=== PATIENT | female | born 1985 | race Caucasian/White ===

== ENCOUNTER 2021-01-05 12:03 | Inpatient (IN) ==
[~2021-01-05 12:03] MED LIST: *HR* FentaNYL (PF) 100 MCG/2 ML VIAL IVP PRN; *HR* Nalbuphine 10 MG/ML AMPUL IV PRN; Acetaminophen 325 MG TABLET PO ONE; Famotidine 20 MG/2 ML VIAL IVP PRN; Lidocaine 1% 20 ML MDV INFILT PRN; Metoclopramide 10 MG/2 ML VIAL IVP PRN; Naloxone 0.4 MG/ML INJ IVP PRN; Ondansetron 4 MG/2 ML VIAL IVP PRN
[2021-01-05 13:26] LABS: Basophils # 0.1 K/mcL (0.0-0.2); Basophils % 0.5 %; Eosinophils # 0.2 K/mcL (0.0-0.6); Eosinophils % 1.9 %; Hematocrit 36.5 % (35.3-44.9); Hemoglobin 12.2 g/dL (11.5-15.4); Immature Granulocytes % 0.5 % (0-4); Lymphocytes # 1.4 K/mcL (0.6-4.6); Lymphocytes % 11.9 %; Mean Corpuscular HGB Conc 33.4 g/dL (31.6-35.5); Mean Corpuscular Hemoglobin 27.9 pg (28.0-33.3); Mean Corpuscular Volume 83.5 fL (83.0-100.0); Mean Platelet Volume 11.6 fL (9.4-12.4); Monocytes # 0.6 K/mcL (0.0-1.3); Monocytes % 5.3 %; Neutrophils # 9.6 K/mcL (1.6-8.9); Platelet Count 245 K/mcL (140-400); Red Blood Count 4.37 M/mcL (3.82-4.97); Red Cell Distribution Width 13.9 % (11.5-14.5); Segmented Neutrophils % 79.9 %; White Blood Count 12.1 K/mcL (4.3-11.1)
[2021-01-05 13:47] LABS: Amphetamine Screen,Urine Negative ng/mL (Cutoff=1000); Barbiturate Screen,Urine Negative ng/mL (Cutoff=200); Benzodiazepines Screen,Urine Negative ng/mL (Cutoff=200); Cannabinoid Screen,Urine Negative ng/mL (Cutoff = 50); Cocaine Screen,Urine Negative ng/mL (Cutoff= 300); Opiate Screen,Urine Negative ng/mL (Cutoff=300); Phencyclidine Screen,Urine Negative ng/mL (Cutoff=25)
[2021-01-05] MEDS ORDERED: Ringers Solution, Lactated 1,000 ML ONE ×2 (14:41→17:08)
[2021-01-05] MEDS ORDERED: Oxytocin 20 units/ LR 1000 mL 20 UNIT/1,000 ML BAG IVC SCH ×2 (14:45→21:47)
[2021-01-05] MEDS ORDERED: EPHEDrine 50 MG/ML VIAL IVP PRN (15:14)
[2021-01-05] MEDS ORDERED: Ropivacaine/PF 0.2% 20 ML VIAL EP ONE (15:14)
[2021-01-05] MEDS ORDERED: *HR* FentaNYL (PF) 100 MCG/2 ML VIAL EP ONE (15:14)
[2021-01-05] MEDS ORDERED: Epidural Premix (fent/bupiv) 110 ML EP SCH (15:15)
[2021-01-05 15:17] LABS: Influenza A PCR Negative (Negative); Influenza B PCR Negative (Negative); Resp. Syncytial Virus PCR Negative (Negative); SARS-CoV-2 by PCR (In House) Negative (Negative)
[2021-01-05] MEDS ORDERED: *HR* FentaNYL (PF) 100 MCG/2 ML VIAL ONE (15:18)
[2021-01-05] MEDS ORDERED: Ropivacaine/PF 0.2% 20 ML VIAL ONE (15:18)
[2021-01-05] MEDS ORDERED: Acetaminophen 325 MG TABLET PO PRN (21:47)
[2021-01-05] MEDS ORDERED: Benzocaine/Menthol 56 GM AEROSOL SPRAY TP PRN (21:47)
[2021-01-05] MEDS ORDERED: Lanolin 7 G OINT...G. TP PRN (21:47)
[2021-01-06] MEDS: Ibuprofen 600 MG TABLET PO PRN ×4 (03:23→22:34)
[2021-01-06] MEDS: Prenatal Vit/FA 1 EACH TABLET PO SCH (08:38)
[2021-01-07] MEDS: Prenatal Vit/FA 1 EACH TABLET PO SCH (07:47)
[2021-01-07 07:51] VITALS: BP 120/79
== END 2021-01-07 10:20 | disposition home or self-care (01) | DRG 807 ==
LOC: 1NENULAB → 1NENUOBS 21:20
PROVIDERS: ADMIT Advanced Practice Midwife; ATTEND Advanced Practice Midwife